=== PATIENT | female | born 1970 | race African-American/Black ===

== ENCOUNTER 2025-03-24 08:41 | Outpatient (CLI) | payer OTHER | END 2025-03-24 08:42 | disposition home or self-care (01) | LOC: CSHMAMMO 08:41 | PROVIDERS: ATTEND Nurse Practitioner Family | DX: N64.89 Other specified disorders of breast (principal) | CPT/HCPCS: G0279 ==

== ENCOUNTER → 2025-04-05 | Day surgery (SDC) | payer OTHER | LOC: CSHULT 11:50 | PROVIDERS: ATTEND Nurse Practitioner Family | DX: C50.412 Malignant neoplasm of upper-outer quadrant of left female breast (principal); C77.3 Secondary and unspecified malignant neoplasm of axilla and upper limb lymph nodes | CPT/HCPCS: 19083; 38505; 76942; 88305; 88342; 88360; A4648 ==

== ENCOUNTER 2025-05-17 09:05 | Outpatient (CLI) | payer OTHER | END 2025-05-17 09:06 | disposition home or self-care (01) | LOC: CSHMAMMO 09:05 | PROVIDERS: ATTEND Specialist | DX: C50.912 Malignant neoplasm of unspecified site of left female breast (principal) | CPT/HCPCS: 96372; A9697 ==

== ENCOUNTER 2025-05-17 10:26 | Outpatient (CLI) | payer OTHER ==
[2025-05-17 11:31] LABS: #Basophils 0.03 10x3/uL (0.0-0.2); #Eosinophils 0.15 10x3/uL (0.0-0.5); #Monocytes 0.54 10x3/uL (0.0-1.1); #Neutrophils 2.43 10x3/uL (1.5-8.4); %Basophils 0.5 % (0.0-2.0); %Eosinophils 2.6 % (0.0-6.0); %Lymphocytes 45.9 % (18.0-47.0); %Monocytes 9.2 % (0.0-10.0); %Neutrophils 41.5 % (40.0-75.0); Hematocrit 33.3 % (34.9-44.5); Hemoglobin 10.3 g/dL (12.0-15.5); Mean Corpuscular Hemoglobin 27.2 pg (27.0-33.0); Mean Corpuscular Volume 88.1 fL (81.6-98.3); Platelet Count 433 10x3/uL (150-450); Red Blood Cell (RBC) Count 3.78 10x6/uL (3.90-5.03); White Blood Cell (WBC) Count 5.86 10x3/uL (3.5-10.5)
[2025-05-17 12:09] LABS: Anion Gap 12 mmol/L (10-20); BUN (Urea Nitrogen) 6 mg/dL (9.8-20.1); Calc. Creatinine Clearance 0 mL/min (70-130); Calcium 9.1 mg/dL (7.8-10.44); Carbon Dioxide 27 mmol/L (22-29); Chloride 107 mmol/L (98-107); Glucose 76 mg/dL (70-105); Potassium 3.9 mmol/L (3.5-5.1); Sodium 142 mmol/L (136-145)
== END 2025-05-17 10:27 | disposition home or self-care (01) ==
LOC: CSHLAB 10:26
PROVIDERS: ATTEND Specialist
DX: Z01.812 Encounter for preprocedural laboratory examination (principal); C50.912 Malignant neoplasm of unspecified site of left female breast
CPT/HCPCS: 80048; 85025